=== PATIENT | female | born 1955 | race Caucasian/White ===

== ENCOUNTER → 2018-07-02 | Outpatient (CLI) | payer BC ==
--- NOTE | 2018-07-02 17:43 | Diagnostic Imaging Report ---
INDICATION: Twisted left foot with left foot pain. TIME OF EXAM: 5:06 PM FINDINGS: Three views of the left foot were obtained. The phalanges appear to be intact. Metatarsals are intact. No fractures are seen. Midfoot and hindfoot are unremarkable apart from posterior and plantar calcaneal spurs. IMPRESSION: No acute bony abnormality is detected. Dictated by: Dictated on workstation # [id number]
== END ==
LOC: RAD FS 17:10
PROVIDERS: ATTEND Physician Assistant
DX: S99.922A Unspecified injury of left foot, initial encounter (principal); X50.1XXA Overexertion from prolonged static or awkward postures, initial encounter
CPT/HCPCS: 73630